=== PATIENT | male | born 1950 | race Caucasian/White ===

== ENCOUNTER 2017-05-14 16:33 | Inpatient (IN) | payer MEDICARE, BC ==
--- NOTE | ~2017-05-14 | EC ---
PATIENT:CALLIE POZO DATE OF SERVICE: 05/15/17 SEX: M MEDICAL RECORD: [id number] DATE OF : [birth year] LOCATION:D.M2 D.211 AGE OF PATIENT: 67 ADMISSION DATE: 05/15/17 REFERRING PHYSICIAN: INTERPRETING PHYSICIAN: THELMA LUA MD ECHOCARDIOGRAM REPORT ECHO CHARGES 4 ECHO COMPLETE CLINICAL DIAGNOSIS: S/P ACUTE VA/STEMI ECHOCARDIOGRAPHIC MEASUREMENTS (adult normal given) AC root (d.<3.7cm) 3.5 cm LV Septum d (<1.2 cm> 1.6 cm Valve Excursion 2.2 cm LV Septum (systole) 2.2 cm Left Atria (s.<4.0cm> 4.0 cm LVPW d(<1.2cm) 1.6 cm RV (d.<2.3cm) 2.5 cm LVPW (sytole) 2.3 cm LV diastole(<5.6CM) 5.8 cm MV E-F(>70mm/sec) cm LV systole 3.9 cm LVOT Diameter 1.9 cm MV exc.(>10mm) cm Est.ejection fraction (50-75%) % Pericardial Effusion N DOPPLER: LVIT cm/sec A 73.0 cm/sec E 107 cm/sec LA cm/sec RVSP 43.0 mmHg LVOT 122 cm/sec AOP1/2T m/s Asc. Ao 144 cm/sec RVOT 79.0 cm/sec RA cm/sec PA 85.0 cm/sec AV Gradient Peak 8.3 mmHg AV Mean 4.6 mmHg AV Area 2.6 cm MV Gradient Peak 5.1 mmHg MV Mean 2.0 mmHg MV Area cm COMMENTS: District Claims Manager: Jono HAINESOE Pocket Builder: 4 Dr. Lua TAPE# PACS DATE OF SERVICE: 05/15/2017 PROCEDURE: Transthoracic echocardiogram. FINDINGS: 1. The left ventricle has normal to mildly hyperdynamic LV systolic function, EF is 65%. There are no obvious regional wall motion abnormalities. Inflow characteristics are normal. 2. The left atrium is mildly dilated. 3. The aortic valve is normal structurally and functionally. ECHOCARDIOGRAM REPORT [id number] CALLIE POZO 4. The mitral valve is normal. 5. The tricuspid valve is normal. RVSP of 43 mmHg. 6. The pericardium is normal. 7. The pulmonic valve is normal. 8. The right atrium has mild dilatation. 9. The right ventricle has normal size, normal function. CONCLUSION: The patient has evidence of hypertensive heart disease with moderate left ventricular hypertrophy, but there is no obvious wall motion abnormalities and has preserved LV systolic function. TRANSINT:[id number] Voice Confirmation ID: [id number] DOCUMENT ID: [id number] 05/18/2017 Edited to correct date of service, dm. THELMA LUA MD at 0807 CC: [id number] DICTATION DATE: 05/16/17 0729 BATH TESTER: 05/16/17 0949 DIS IN 05/16/17 [place] [id number] [place] [address]
--- NOTE | ~2017-05-14 | HEMODYNAMI ---
PATIENT:CALLIE POZO MEDICAL RECORD: [id number] : 48 LOCATION:[facility] ADMISSION DATE: 05/14/17 Generatedon:05/14/201718:27 Patient name: CALLIE POZO Patient #: [id number] SSN: : 1950 Date of study: 05/14/2017 Page: Of Hemodynamic Procedure Report Patient Data Patient Demographics Procedure consent was obtained First Name: CALLIE Gender: Male Last Name: SÁNCHEZ : 1950 Patient #: [id number] Age: 67 year(s) Race: Unknown Additional ID: [id number] Contact details Address: [address] [place] [address] State: [place] City: [place] Zip code: [address] Past Medical History Allergies: No known allergies Admission Admission Data Admission Date: 05/14/2017 Admission Time: 16:33 Procedure Procedure Types Cath Procedure Diagnostic Procedure LHC LH w/Coronaries PCI Procedure Coronary Stent Coronary Stent Initial x2 Miscellaneous Procedures Moderate Sedation up to 30 minutes Procedure Description Procedure Date Procedure Date: 05/14/2017 Procedure Start Time: 17:48 Procedure End Time: 18:26 Procedure Staff Name Function Mikey Stephens MD Performing Physician Santi Vanessa RT Monitor Denise Mixon RT Scrub Carla Alvarez RN Nurse Procedure Data Cath Procedure Fluoroscopy Diagnostic fluoroscopy Total fluoroscopy Time: 7.7 time: 7.7 min min Diagnostic fluoroscopy Total fluoroscopy dose: dose: 1620 mGy 1620 mGy Contrast Material Contrast Material Type Amount (ml) Isovue 300 137 Entry Location Entry Primary Successful Side Size Upsize Upsize Entry Closure Euceda ccessful Closure Location (Fr) 1 (Fr) 2 (Fr) Remarks Device Remarks Radial Right 6 Fr Mechanical artery Short Compression Estimated blood loss: 10 ml Diagnostic catheters Device Type Used For End Catheter Placement DIAGNOSTIC Upson 110cm 5 Procedure Fr catheter ([id number]) Procedure Complications No complications Procedure Medications Medication Administration Route Dosage Oxygen NC 2 l/min 0.9% NaCl I.V. 100 ml/hr Benadryl I.V. 50 mg Lidocaine 2% added to field 20 Heparin Flush Bag added to field 2 bags (1000units/500ml NS) Versed I.V. 2 mg Fentanyl I.V. 25 mcg Heparin Bolus I.V. 7000 units Nitroglycerin IC/IA I.C. 200 mcg Heparin Bolus I.V. 2000 units Hemodynamics Rest Heart Rate: 76 (bpm) Pressure Samples Time Site Value (mmHg) Purpose Heart Use Rate(bpm) 17:54 LV 160/-8,14 EDP 81 17:54 AO 130/72(99) Pullback 87 17:54 LV 128/14,17 Pullback 87 Gradients Valve Time Site 1 Site 2 Mean SEP/DFP Peak To Heart Use (mmHg) (sec/min) Peak Rate (mmHg) (bpm) Aortic 17:54 LV AO 0 87 128/14,17 130/72(99) Calculations Valve P-P Mean Valve Index Valve Source Name Gradient Area Flow (cm2) Aortic 0 0 Snapshots Pre Cath Intra NCS Post Cath Vital Signs Time Heart Resp SPO2 etCO2 NIBP (mmHg) Rhythm Pain Sedation Rate (ipm) (%) (mmHg) Status Level (bpm) 17:39:30 74 17 98 0 155/84(116) NSR w/ ST 0 (11) 10(A) Elevation , No pain 17:44:19 89 20 96 0 148/61(78) NSR w/ ST 0 (11) 10(A) Elevation , No pain 17:49:04 87 15 98 38 149/82(112) NSR w/ ST 0 (11) 10(A) Elevation , No pain 17:53:42 88 15 96 32.8 128/69(87) NSR w/ ST 0 (11) 10(A) Elevation , No pain 17:58:23 85 13 98 33.5 138/73(96) NSR w/ ST 0 (11) 10(A) Elevation , No pain 18:03:06 88 15 99 32.8 143/82(106) NSR w/ ST 0 (11) 10(A) Elevation , No pain 18:07:48 89 17 100 32.8 137/75(101) NSR w/ ST 0 (11) 10(A) Elevation , No pain 18:12:31 80 15 100 33.5 134/74(92) NSR w/ ST 0 (11) 10(A) Elevation , No pain 18:17:46 67 16 99 34.3 122/81(103) NSR w/ ST 0 (11) 10(A) Elevation , No pain 18:22:31 70 18 99 29 117/59(95) NSR w/ ST 0 (11) 10(A) Elevation , No pain Medications Time Medication Route Dose Verified Delivered Reason Notes Effectiveness by by 17:41:52 Oxygen NC 2 Mikey Buffie used for l/min Becca Alvarez RN procedure 17:42:01 0.9% NaCl I.V. 100 Mikey Buffie Per physician ml/hr Becca Alvarez RN, MD 17:42:08 Benadryl I.V. 50 mg Mikey Buffie used for Becca rae MD 17:42:16 Lidocaine 2% added 20ml Mikey Mikey for local to vial Becca Stephens MD anesthetic field LAINEZ 17:42:22 Heparin Flush added 2 Mikey Mikey used for Bag to bags Becca Stephens MD procedure (1000units/500ml field LAINEZ NS) 17:48:57 Versed I.V. 2 mg Mikey Buffie for sedation Becca Alvarez RN, MD 17:49:09 Fentanyl I.V. 25 Mikey Buffie for sedation mcg Becca Alvarez RN, MD 17:57:19 Heparin Bolus I.V. 7000 Mikey Buffie for verifi ed units Becca Alvarez RN anticoagulation with dr MD stephens 18:07:46 Nitroglycerin I.C. 200 Mikey Mikey for IC/IA mcg Becca Stephens MD vasodilation 18:11:43 Heparin Bolus I.V. 2000 Mikey Buffie for verifi ed units Becca Alvarez RN anticoagulation with dr MD stephens Procedure Log Time Note 17:25:22 Time tracking: Regular hours 17:25:26 Plan of Care:Hemodynamics will remain stable., Cardiac rhythm will remain stable., Comfort level will be maintained., Respiratory function will remain adequate., Patient/ family verbilizes understanding of procedure., Procedure tolerated without complication., Recovers from procedure without complications.. 17:25:46 Carla Alvarez RN sent for patient. Start room use. 17:38:34 Vital chart was started 17:38:40 Patient received from ED to CCL 1 Alert and oriented. Tansferred to table in Supine position. 17:38:41 Warm blankets applied, and soledad hugger turned on for patient comfort. 17:38:42 Correct patient and procedure confirmed by team. 17:38:43 ECG and BP/O2 sat monitors applied to patient. 17:38:44 Signed procedure consent form obtained from patient. 17:38:46 Baseline sample Acquired. 17:38:50 Rhythm: sinus rhythm , w/ ST elevation 17:38:52 Full Disclosure recording started 17:41:52 Oxygen 2 l/min NC was administered by Carla Alvarez RN; used for procedure; 17:42:01 0.9% NaCl 100 ml/hr I.V. was administered by Carla Alvarez RN; Per physician; 17:42:08 Benadryl 50 mg I.V. was administered by Carla Alvarez RN; used for procedure; 17:42:16 Lidocaine 2% 20ml vial added to field was administered by Mikey Stephens MD; for local anesthetic; 17:42:22 Heparin Flush Bag (1000units/500ml NS) 2 bags added to field was administered by Mikey Stephens MD; used for procedure; 17:47:15 H&P Date Dictated: 05/14/2017 ER History on chart.. 17:47:16 Pre-procedure instructions explained to patient. 17:47:16 Pre-op teaching completed and patient verbalized understanding. 17:47:17 Family in waiting room. 17:47:18 Patient NPO since Midnight. 17:47:25 Patient allergic to No known allergies 17:47:28 Is the patient allergic to Iodine/contrast media? No. 17:47:29 Is patient on blood thinner?Yes 17:47:32 ACC The patient was administered the following blood thiners within the last 24 hours: ACCPlavix 17:47:32 Patient diabetic? Yes. 17:47:33 If diabetic: On Metformin? Yes 17:47:34 If on Metformin: Last Dose? 05/14/2017 17:47:37 Previous problem with sedation/anesthesia? No ? 17:47:37 Snore? Yes 17:47:38 Sleep apnea? Yes 17:47:39 Deviated septum? No 17:47:39 Opens mouth fully? Yes 17:47:40 Sticks out tongue? Yes 17:47:42 Airway obstruction? No ? 17:47:44 Dentures? No ? 17:47:50 Modified Yusuf's test Ulnar < 7 seconds 17:47:56 Patient pain scale 0/10 ?. 17:48:03 IV patent on arrival in right antecubital, left antecubital with 0.9% NaCl at [facility]. 17:48:07 Right Radial & Right Groin area was prepped with chlora-prep and draped in sterile fashion 17:48:13 Alarms reviewed by R. N. 17:48:13 Sharps counted by scrub and verified by R.N. 17:48:16 Use device set Radial Dx or PCI 17:48:17 ACIST Syringe (95282) opened to sterile field. 17:48:18 Medline Cath Pack ([id number]) opened to sterile field. 17:48:21 ACIST Manifold (72385) opened to sterile field. 17:48:21 ACIST Hand Control (87140) opened to sterile field. 17:48:22 Bag Decanter (2002S) opened to sterile field. 17:48:23 NEEDLE Cook 21G 4cm Radial (A22734) opened to sterile field. 17:48:24 MBrace Wrist Support ([id number]) opened to sterile field. 17:48:24 Tegaderm 4 x 4 (1626W) opened to sterile field. 17:48:25 SHEATH 6FR Slender ([id number]) opened to sterile field. 17:48:25 DIAGNOSTIC WIRE .035 260cm J wire (138811) opened to sterile field. 17:48:30 Physician arrived 17:48:30 --------ALL STOP TIME OUT------ 17:48:31 Final Timeout: patient, procedure, and site verified with staff and physician. All members of the team are in agreement. 17:48:32 Right Radial & Right Groin site verified by team. 17:48:35 Physical assessment completed. ASA score P 2 - A patient with mild systemic disease as per Mikey Stephens MD. 17:48:37 Sedation plan: IV Moderate Sedation Medication:Versed, Fentanyl 17:48:43 Procedure started. 17:48:48 Local anesthetic to right radial artery with Lidocaine 2% by Mikey Stephens MD.INITIAL ACCESS ONLY 17:48:55 A 6 Fr Short sheath was inserted into the Right Radial artery 17:48:57 Versed 2 mg I.V. was administered by Carla Alvarez RN; for sedation; 17:49:09 Fentanyl 25 mcg I.V. was administered by Carla Alvarez RN; for sedation; 17:49:41 Zero performed for pressure channel P1 17:49:52 Lab results completed and on chart. 17:50:05 A DIAGNOSTIC Upson 110cm 5 Fr catheter (062877) was advanced over the wire and used for Procedure. 17:50:35 IV Extension Set opened to sterile field. 17:51:36 LCA angiography performed. 17:53:09 RCA angiography performed. 17:54:29 LV gram done using RODRIGUEZ 17:54:31 Injector settings: Ml/sec: 12, Volume: 8, 17:54:59 Catheter removed. 17:55:13 INFLATOR Merit BasixCompak (CU0642) opened to sterile field. 17:55:13 GUIDE 6FR XBLAD 3.5 catheter (61341441) opened to sterile field. 17:55:14 BMW 190cm Maypearl 2 J wire (7553207V) opened to sterile field. 17:55:54 COPILOT Valve Control (5540727) opened to sterile field. 17:56:03 6 Fr xblad 3.5 guide catheter was inserted over the wire 17:57:19 Heparin Bolus 7000 units I.V. was administered by Carla Alvarez RN; for anticoagulation; verified with dr stephens 17:58:44 bmw wire advanced. 17:59:24 Wire advanced across lesion. 18:02:28 Inflation Number: 1 A CORAL RX 3.0 x 22 stent ([id number]) was prepped and advanced across the Dist LAD. The stent was deployed at 12 FRANCK for 0:10 (min:sec). 18:02:50 Stent catheter was removed intact over wire. 18:05:16 Inflation Number: 1 A CORAL RX 3.0 x 26 stent ([id number]) was prepped and advanced across the Prox LAD. The stent was deployed at 19 FRANCK for 0:10 (min:sec). 18:05:31 Stent catheter was removed intact over wire. 18:07:46 Nitroglycerin IC/IA 200 mcg I.C. was administered by Mikey Stephens MD; for vasodilation; 18:08:27 Wire removed. 18:10:17 Guide catheter removed. 18:11:11 GUIDE 6FR AR 1.0 SH catheter ([id number]) opened to sterile field. 18:11:43 Heparin Bolus 2000 units I.V. was administered by Carla Alvarez RN; for anticoagulation; verified with dr stephens 18:12:39 6 Fr AR 1 SH guide catheter was inserted over the wire 18:13:34 BMW wire advanced. 18:13:35 Wire advanced across lesion. 18:16:03 Inflation Number: 1 A CORAL RX 4.0 x 22 stent ([id number]) was prepped and advanced across the Mid RCA. The stent was deployed at 12 FRANCK for 0:10 (min:sec). 18:16:44 Stent catheter was removed intact over wire. 18:17:47 Wire removed. 18:17:47 Guide catheter removed. 18:17:56 TR BAND Large ([id number]) opened to sterile field. 18:18:05 Sheath removed intact; hemostasis achieved with Mechanical Compression to the Right Radial artery. 18:18:07 Procedure ended.(Physican Out) 18:22:19 Fluoroscopy time 07.70 minutes. 18:22:23 Fluoroscopy dose: 1620 mGy 18:22:23 Flurop Dose total: 1620 18:22:29 Contrast amount:Isovue 300 137ml. 18:22:31 Sharps counted by scrub and verified by R.N. 18:22:38 TR band inflated with 11cc of air. 18:22:58 Insertion/operative site no bleeding no hematoma. 18:23:06 Post right radial artery:stable, soft, clean and dry 18:23:13 Post Procedure Pulses reassessed and unchanged 18:23:16 Post-procedure physical assessment completed. ASA score P 2 - A patient with mild systemic disease as per Mikey Stephens MD. 18:23:19 Post procedure rhythm: unchanged. 18:23:23 Estimated blood loss: 10 ml 18:23:25 Post procedure instruction explained to patient.Patient verbalizes understanding. 18:23:26 Patient needs reinforcement of post procedure teaching. 18:23:48 Procedure type changed to Cath procedure, Diagnostic procedure, LHC, LHC w/Coronaries, PCI procedure, Coronary Stent, Coronary Stent Initial x2, Miscellaneous Procedures, Moderate Sedation up to 30 minutes 18:24:04 EF : 65 % 18:25:46 Procedure and supply charges have been captured, reviewed, submitted and are correct. 18:25:53 Procedure Complication : No complications 18:25:57 Vital chart was stopped 18:25:58 See physician's report for complete and final results. 18:26:05 Report given to ED. 18:26:08 Patient transfered to ED with Stretcher. 18:26:10 Procedure ended. 18:26:10 Full Disclosure recording stopped 18:26:17 End room use (Document Last) Intervention Summary Intervention Notes Time ActionType Lesion and Equipment Used Action# Pressure Duration Attributes 18:02:28 Place stent Dist LAD CORAL RX 3.0 x 1 12 00:10 22 stent ([id number]) 18:05:16 Place stent Prox LAD CORAL RX 3.0 x 1 19 00:10 26 stent ([id number]) 18:16:03 Place stent Mid RCA CORAL RX 4.0 x 1 12 00:10 22 stent ([id number]) Device Usage Item Name Manufacture Quantity Catalog [facility] Lot# / Number Charge Number Stock Stock Serial# Code ACIST Syringe Acist 1 09271 862817 945362 876651 20 (64182) Medical Systems Inc Medline Cath Cardinal 1 [id number] 680216 14436 475408 5 [facility] ([id number]) ACIST Manifold Acist 1 45680 119296 424694 804272 5 (33677) Medical Systems Inc ACIST Hand Acist 1 93344 343812 388708 329213 5 Control Medical (92959) Systems Inc Bag Decanter Microtek 1 2001S 801621 55157 532012 5 (2001S) Medical Inc. NEEDLE Lorena Gaxiola Medical 1 O99797 580636 290796 476277 5 21G 4cm Radial (A00628) MBrace Wrist Advanced 1 140-0250-00 533063 40460 971262 5 Support Vascular (179066518) Dynamics Tegaderm 4 x 4 3M 1 1626W 502221 726346 899225 5 (1626W) SHEATH 6FR Terumo 1 [id number] 986555 464334 401318 40 Slender ([id number]) DIAGNOSTIC St Ariel 1 257646 883761 042841 950214 30 WIRE .035 260cm J wire (974233) DIAGNOSTIC Terumo 1 40-0783 470299 158208 502430 5 Upson 110cm 5 Fr catheter (296131) IV Extension Hospira 1 09763-07 796579 81501 041945 5 Set INFLATOR Merit Merit 1 GL6378 616368 465091 899708 15 [facility] (GF1730) GUIDE 6FR Cardinal 1 [id number] 101697 768478 997558 10 XBLAD 3.5 Health catheter (66774795) BMW 190cm Chand 1 [id number] 626623 06833 736279 5 Maypearl 2 J Vascular wire (8539710G) COPILOT Valve Chand 1 1195691 254612 193452 894077 5 Control Vascular (0992594) CORAL RX 3.0 x Medtronic 1 [id number] 949642 6737542 840861 5 [id number] 22 stent ([id number]) CORAL RX 3.0 x Medtronic 1 [id number] 888030 1726859 035101 5 [id number] 26 stent ([id number]) GUIDE 6FR AR Medtronic 1 [id number] 195963 03035 351817 1 1.0 SH catheter ([id number]) CORAL RX 4.0 x Medtronic 1 [id number] 241304 8780100 800936 5 [id number] 22 stent ([id number]) TR BAND Large Terumo 1 [id number] 834057 467103 826175 40 ([id number]) Signature Audit [place] Stage Time Signature Unsigned Intra-Procedure 05/14/2017 Santi Vanessa 6:27:54 PM RT(R) Signatures Monitor : Santi Vanessa RT Signature : Date : Time : [facility] [address] [place] [address]
[2017-05-14 17:29] LABS: BASOPHILS 0.1 % (0-2); EOSINOPHILS 0.2 % (0-7); HEMATOCRIT 36.8 % (42.0-54.0); HEMOGLOBIN 12.1 g/dL (13.5-17.5); IMMATURE GRANULOCYTES 0.2 % (0-5); MCH 30.7 pg (26.0-34.0); MCHC 32.9 g/dL (31.0-37.0); MCV 93.4 fL (80.0-100.0); MEAN PLATELET VOLUME 10.3 fL (7.4-10.4); MONOCYTES 5.6 % (2-11); NEUTROPHILS 80.9 % (40-80); PLATELET COUNT 235 10x3/uL (130-400); RBC 3.94 10x6/uL (4.20-6.10); RDW 13.4 % (11.5-14.5); WBC 13.3 10x3/uL (4.8-10.8)
[2017-05-14 17:41] LABS: APTT 24.7 SECONDS (22.8-39.4); INR 1.08 (0.85-1.17); PROTIME 13.6 SECONDS (11.6-15.0)
[2017-05-14 17:46] LABS: ALKALINE PHOSPHATASE 135 U/L (46-116); ALT (SGPT) 30 U/L (10-68); BILIRUBIN - TOTAL 0.27 mg/dL (0.2-1.3); CALC OSMOLALITY 285 mosm/kg (275-300); CALCIUM 9.2 mg/dL (8.5-10.1); CARBON DIOXIDE 27.8 mmol/L (21.0-32.0); CHLORIDE - SERUM 105 mmol/L (98-107); CREATININE - SERUM 1.1 mg/dL (0.6-1.3); GLUCOSE 167 mg/dL (74-106); POTASSIUM - SERUM 4.6 mmol/L (3.5-5.1); PROTEIN - SERUM 7.6 g/dL (6.4-8.2); SODIUM 140 mmol/L (136-145); UREA NITROGEN 22 mg/dL (7-18); eGFR NON AFRICAN AMERICAN 71 mL/min (90-120)
[2017-05-14 18:01] LABS: CKMB 7.3 U/L (0.0-3.6); CREATINE KINASE 226 UL (21-232)
[2017-05-14 18:05] LABS: TROPONIN-I 2.605 ng/mL (0.000-0.060)
[2017-05-15 06:59] LABS: BASOPHILS 0.2 % (0-2); HEMATOCRIT 33.7 % (42.0-54.0); HEMOGLOBIN 10.8 g/dL (13.5-17.5); IMMATURE GRANULOCYTES 0.3 % (0-5); LYMPHOCYTES 32.4 % (15-50); MCH 30.5 pg (26.0-34.0); MCV 95.2 fL (80.0-100.0); MEAN PLATELET VOLUME 10.5 fL (7.4-10.4); NEUTROPHILS 55.1 % (40-80); PLATELET COUNT 148 10x3/uL (130-400); RBC 3.54 10x6/uL (4.20-6.10); RDW 13.8 % (11.5-14.5); WBC 6.5 10x3/uL (4.8-10.8)
[2017-05-15 07:39] LABS: ALBUMIN 3.5 g/dL (3.4-5.0); ALKALINE PHOSPHATASE 126 U/L (46-116); ALT (SGPT) 29 U/L (10-68); BILIRUBIN - TOTAL 0.51 mg/dL (0.2-1.3); CALC OSMOLALITY 281 mosm/kg (275-300); CALCIUM 8.7 mg/dL (8.5-10.1); CARBON DIOXIDE 24.1 mmol/L (21.0-32.0); CHLORIDE - SERUM 106 mmol/L (98-107); CREATININE - SERUM 0.9 mg/dL (0.6-1.3); GLUCOSE 141 mg/dL (74-106); POTASSIUM - SERUM 4.2 mmol/L (3.5-5.1); PROTEIN - SERUM 6.5 g/dL (6.4-8.2); SODIUM 139 mmol/L (136-145); UREA NITROGEN 19 mg/dL (7-18); eGFR NON AFRICAN AMERICAN 89 mL/min (90-120)
[2017-05-15 07:55] LABS: TROPONIN-I 8.285 ng/mL (0.000-0.060)
[2017-05-15 10:19] VITALS: BP 111/69; BMI 33.0
[2017-05-15 12:19] VITALS: BP 104/65
[2017-05-15 12:20] VITALS: BP 104/65
[2017-05-15 16:29] VITALS: BP 135/88
[2017-05-15 20:00] VITALS: BP 133/71
[2017-05-16] VITALS: BP 118/65
[2017-05-16 04:00] VITALS: BP 142/82
[2017-05-16 08:41] VITALS: BP 138/78
[2017-05-16] MEDS ORDERED: PLAVIX75 MG PO (10:29)
[2017-05-16] MEDS ORDERED: ZESTRIL40 MG PO (10:29)
[2017-05-16] MEDS ORDERED: GLUCOTROL 5 MG T5 MG PO (10:30)
[2017-05-16] MEDS ORDERED: ACTOS45 MG PO (10:30)
[2017-05-16 11:47] VITALS: BP 131/43
[2017-05-16] MEDS ORDERED: ASPIRIN325 MG PO (12:46)
[2017-05-16] MEDS ORDERED: HYDROCODONE-APA1 TAB PO (12:47)
[2017-05-16] MEDS ORDERED: GLUCOPHAGE1000 MG PO (12:48)
[2017-05-16] MEDS ORDERED: NORVASC5 MG PO (12:49)
[2017-05-16] MEDS ORDERED: LYRICA100 MG PO (12:49)
[2017-05-16] MEDS ORDERED: LIPITOR80 MG PO (12:50)
[2017-05-16] MEDS ORDERED: LOPRESSOR25 MG PO (12:51)
[2017-05-16] MEDS ORDERED: ZANAFLEX6 MG PO (12:51)
== END 2017-05-16 13:59 | disposition home or self-care (01) | DRG 247 ==
LOC: D.ER 16:33 → OBSVTIME 05-15 07:53 → D.M2 05-15 07:53
PROVIDERS: Family Medicine; Internal Medicine Cardiovascular Disease
PROC: B2111ZZ Fluoroscopy of Multiple Coronary Arteries using Low Osmolar Contrast (ICD-10-PCS; 2017-05-14)
PROC: B2151ZZ Fluoroscopy of Left Heart using Low Osmolar Contrast (ICD-10-PCS; 2017-05-14)
PROC: 027136Z Dilation of Coronary Artery, Two Arteries with Three Drug-eluting Intraluminal Devices, Percutaneous Approach (ICD-10-PCS; principal; 2017-05-14 17:25)
PROC: 4A023N7 Measurement of Cardiac Sampling and Pressure, Left Heart, Percutaneous Approach (ICD-10-PCS; 2017-05-14 17:25)
DX: I21.09 ST elevation (STEMI) myocardial infarction involving other coronary artery of anterior wall (principal); I25.10 Atherosclerotic heart disease of native coronary artery without angina pectoris; I10 Essential (primary) hypertension; K21.9 Gastro-esophageal reflux disease without esophagitis

== ENCOUNTER → 2017-07-06 12:27 | Outpatient (CLI) | payer MEDICARE, BC ==
--- NOTE | ~2017-07-06 | EC ---
PATIENT:CALLIE POZO DATE OF SERVICE: 07/06/17 SEX: M MEDICAL RECORD: [id number] DATE OF : [birth year] [facility] AGE OF PATIENT: 67 ADMISSION DATE: 07/06/17 REFERRING PHYSICIAN: INTERPRETING PHYSICIAN: THELMA LUA MD ECHOCARDIOGRAM REPORT ECHO CHARGES 4 ECHO COMPLETE Date: 07/06 CLINICAL DIAGNOSIS: HTN/CAD/CP ECHOCARDIOGRAPHIC MEASUREMENTS (adult normal given) AC root (d.<3.7cm) 3.4 cm LV Septum d (<1.2 cm> 1. cm Valve Excursion 2.3 cm LV Septum (systole) 1.8 cm Left Atria (s.<4.0cm> 3.7 cm LVPW d(<1.2cm) 1.3 cm RV (d.<2.3cm) 3.0 cm LVPW (sytole) 2.1 cm LV diastole(<5.6CM) 4.5 cm MV E-F(>70mm/sec) cm LV systole 2.9 cm LVOT Diameter 2.0 cm MV exc.(>10mm) cm Est.ejection fraction (50-75%) % DOPPLER: LVIT cm/sec A 58.0 cm/sec E 92.0 cm/sec LA cm/sec RVSP 33.4 mmHg LVOT 108 cm/sec AOP1/2T m/s Asc. Ao 145 cm/sec RVOT 79.0 cm/sec RA cm/sec PA 108 cm/sec AV Gradient Peak 8.5 mmHg AV Mean 4.5 mmHg AV Area 2.2 cm MV Gradient Peak 3.7 mmHg MV Mean 1.2 mmHg MV Area cm COMMENTS: Sweatband Maker: Jono HAINESOE Mission Assessment Specialist: Handy Lua TAPE# PACS Pericardial Effusion N DATE OF SERVICE: PROCEDURE: Transthoracic echocardiogram. FINDINGS: 1. Left ventricle is normal size, normal function with mild left ventricular hypertrophy and inflow characteristics that are normal. 2. The left atrium is normal size, normal function. 3. The aortic valve is not well visualized, but appears to be grossly normal. 4. Mitral valve has mild mitral regurgitation, but structurally appears to be ECHOCARDIOGRAM REPORT [id number] CALLIE POZO normal. 5. The tricuspid valve has mild tricuspid regurgitation with an RVSP of 30 to 35 mmHg. 6. The right ventricle shows mild dilatation. 7. The right atrium has normal structure and normal function. 8. Pulmonic valve has trace pulmonic insufficiency. CONCLUSIONS: The patient has evidence of mild left ventricular hypertrophy, otherwise normal echo for stated age. TRANSINT:[id number] Voice Confirmation ID: [id number] DOCUMENT ID: [id number] THELMA LUA MD at 0741 CC: [id number] DICTATION DATE: 07/11/17 1057 RADIO TESTER: 07/11/17 1229 DEP CLI 07/06/17 [facility] [address] [place] [address]
[~2017-07-06 12:27] MED LIST: ACTOS45 MG PO; ASPIRIN325 MG PO; GLUCOPHAGE1000 MG PO; GLUCOTROL 5 MG T5 MG PO; HYDROCODONE-APA1 TAB PO; LIPITOR80 MG PO; LOPRESSOR25 MG PO; LYRICA100 MG PO; NORVASC5 MG PO; PLAVIX75 MG PO; ZANAFLEX6 MG PO; ZESTRIL40 MG PO
== END | disposition home or self-care (01) ==
LOC: D.US 12:27
DX: I10 Essential (primary) hypertension (principal); I25.10 Atherosclerotic heart disease of native coronary artery without angina pectoris; R09.89 Other specified symptoms and signs involving the circulatory and respiratory systems; R07.9 Chest pain, unspecified

== ENCOUNTER → 2018-04-24 11:01 | Outpatient (CLI) | payer MEDICARE, BC ==
--- NOTE | 2018-04-27 17:10 | ST ---
PATIENT:CALLIE POZO MEDICAL RECORD: [id number] SEX: M LOCATION:[facility] ORDER #: ADMISSION DATE: 04/24/18 AGE OF PATIENT: 68 REFERRING PHYSICIAN: INTERPRETING PHYSICIAN: JENNY TRIANA MD DATE OF SERVICE: 04/24/2018 PROCEDURE: Nuclear stress test. INDICATION: Angina, coronary artery disease, hypertension, hyperlipidemia, and diabetes. He was exercised on standard Lexiscan protocol with 33 mCi injected at peak stress sestamibi and 10 mCi used previously for rest images. FINDINGS: Gated SPECT reveals preserved ejection fraction at 68% with good wall motioning, thickening, and brightening throughout all segments. SPECT imaging Cardiolite was used as myocardial fusion agent. There is reversibility inferiorly. This includes basal, mid, apical, and inferior segments. The degree of reversibility is mild. The amount of myocardium involved is moderate. OVERALL IMPRESSION: 1. This is an abnormal nuclear stress test with reversible changes inferiorly. 2. Gated SPECT reveals a preserved ejection fraction of 68%. 3. In this patient with ongoing symptomatology, the current scan does suggest presence of hemodynamically significant coronary artery disease. We will proceed with coronary angiography as a followup study. TRANSINT:[id number] Voice Confirmation ID: [id number] DOCUMENT ID: [id number] JENNY TRIANA MD at 1710 CC: [id number] DICTATION DATE: 04/25/18 1157 DESIGN ENGINEERING SPECIALIST: 04/26/18 0143 DEP CLI 04/24/18 [place] [id number]
== END | disposition home or self-care (01) ==
LOC: D.HCCARDIO 11:01
DX: I25.10 Atherosclerotic heart disease of native coronary artery without angina pectoris (principal)

== ENCOUNTER 2018-05-03 10:55 | Outpatient (CLI) | payer MEDICARE, BC ==
[~2018-05-03] VITALS: Ht 177.8 cm; Wt 109.1 kg
--- NOTE | ~2018-05-03 | HEMODYNAMI ---
PATIENT:CALLIE POZO MEDICAL RECORD: [id number] : 48 LOCATION:DDANO ADMISSION DATE: 05/03/18 Generatedon:05/03/201815:11 Patient name: CALLIE POZO Patient #: [id number] SSN: : 1950 Date of study: 05/03/2018 Page: Of Hemodynamic Procedure Report Patient Data Patient Demographics Procedure consent was obtained First Name: CALLIE Gender: Male Last Name: SÁNCHEZ : 1950 [facility] Initial: DREW Age: 68 year(s) Patient #: [id number] Race: Unknown Additional ID: [id number] Contact details Address: [address] [place] [address] State: [place] City: [place] Zip code: [address] Past Medical History Allergies: No known allergies Admission Admission Data Admission Date: 05/03/2018 Admission Time: 10:55 Lab Results Lab Result Date: 05/03/2018 Lab Result Time: 11:20 Biochemistry Name Units Result Min Max BUN mg/dl 27 --(----)-* 7 18 Creatinine mg/dl 1.1 --(--*-)-- 0.6 1.3 CBC Name Units Result Min Max Hematocrit % 37 *-(----)-- 42 54 Hemoglobin g/dl 12.2 *-(----)-- 13.5 17.5 Procedure Procedure Types Cath Procedure Diagnostic Procedure C [facility] w/Coronaries Procedure Description Procedure Date Procedure Date: 05/03/2018 Procedure Start Time: 14:58 Procedure End Time: 15:09 Procedure Staff Name Function Von Ceballos MD Performing Physician Santi Vanessa RT Monitor Marky Braswell RN Nurse Eli Golden RT Scrub Procedure Data Cath Procedure Fluoroscopy Diagnostic fluoroscopy Total fluoroscopy Time: 1 time: 1 min min Diagnostic fluoroscopy Total fluoroscopy dose: 805 dose: 805 mGy mGy Contrast Material Contrast Material Type Amount (ml) Isovue 300 52 Entry Location Entry Primary Successful Side Size Upsize Upsize Entry Closure Euceda ccessful Closure Location (Fr) 1 (Fr) 2 (Fr) Remarks Device Remarks Radial Right 6 Fr Mechanical artery Short Compression Estimated blood loss: 5 ml Diagnostic catheters Device Type Used For End Catheter Placement DIAGNOSTIC Raphine 110cm 5 Procedure Fr catheter ([id number]) Procedure Complications No complications Procedure Medications Medication Administration Route Dosage 0.9% NaCl I.V. 100 ml/hr Oxygen etCO2 Nasal cannula 2 l/min Heparin Flush Bag added to field 2 bags (1000units/500ml NS) Lidocaine 2% added to field 20 Radial Cocktail added to field 1 syringe (Verapomil 2mg/Nitro 400mcg/Heparin 1500units) Versed I.V. 2 mg Fentanyl I.V. 100 mcg Hemodynamics Rest HGB: 12.2 (g/dl) Heart Rate: 63 (bpm) Pressure Samples Time Site Value (mmHg) Purpose Heart Use Rate(bpm) 15:00 LV 113/25,28 Snapshot 138 Gradients Valve Time Site Site Mean SEP/DFP Peak To Heart Use 1 2 (mmHg) (sec/min) Peak Rate (mmHg) (bpm) Aortic 15:00 LV AO 80 Snapshots Pre Cath Intra NCS Post Cath Vital Signs Time Heart Resp SPO2 etCO2 NIBP (mmHg) Rhythm Pain Sedation Rate (ipm) (%) (mmHg) Status Level (bpm) 14:57:21 61 17 99 33.1 167/86(136) NSR 0 (11) 10(A) , No pain 15:01:32 64 16 97 33.8 140/77(103) NSR 0 (11) 10(A) , No pain 15:05:48 68 11 96 34.6 136/76(121) NSR 0 (11) 10(A) , No pain Medications Time Medication Route Dose Verified Delivered Reason Notes E ffectiveness by by 14:50:16 0.9% NaCl I.V. 100 Marky Marky Per ml/hr Michaelle Braswell physician RN RN 14:50:25 Oxygen etCO2 2 l/min Marky Marky for low 02 Nasal Lorigan Lorigan sats cannula RN RN 14:50:34 Heparin Flush added 2 bags Marky Marky used for Bag to Lorigan Areliigan procedure (1000units/500ml field RN RN NS) 14:50:44 Lidocaine 2% added 20ml Marky Marky for local to vial Lorigan Lorigan anesthetic field RN RN 14:50:55 Radial Cocktail added 1 Marky Marky used for (Verapomil to syringe Michaelle Braswell procedure 2mg/Nitro field RN RN 400mcg/Heparin 1500units) 14:56:38 Versed I.V. 2 mg Marky Marky for Lorigan Lorigan sedation RN RN 14:56:55 Fentanyl I.V. 100 mcg Marky Marky for Lorigan Lorigan sedation RN outsole cutter machine Log Time Note 14:26:16 Diagnostic Cath status Elective 14:26:18 Eli Golden RT(R) sent for patient. Start room use. 14:26:20 Time tracking: Regular hours (M-F 7:00 - 5:00) 14:39:29 Patient received from Pre/Post Procedure Room to CCL 2 Alert and oriented. Tansferred to table in Supine position. 14:39:31 Warm blankets applied, and soledad hugger turned on for patient comfort. 14:39:31 Correct patient and procedure confirmed by team. 14:39:32 Signed procedure consent form obtained from patient. 14:39:33 ECG and BP/O2 sat monitors applied to patient. 14:39:36 Pre-procedure instructions explained to patient. 14:39:36 Pre-op teaching completed and patient verbalized understanding. 14:39:37 Family in waiting room. 14:39:39 Patient NPO since Midnight. 14:50:16 0.9% NaCl 100 ml/hr I.V. was administered by Marky Braswell RN; Per physician; 14:50:25 Oxygen 2 l/min etCO2 Nasal cannula was administered by Marky Braswell RN; for low 02 sats; 14:50:34 Heparin Flush Bag (1000units/500ml NS) 2 bags added to field was administered by Marky Braswell RN; used for procedure; 14:50:44 Lidocaine 2% 20ml vial added to field was administered by Marky Braswell RN; for local anesthetic; 14:50:55 Radial Cocktail (Verapomil 2mg/Nitro 400mcg/Heparin 1500units) 1 syringe added to field was administered by Marky Braswell RN; used for procedure; 14:54:54 Patient allergic to No known allergies 14:54:55 Is the patient allergic to Iodine/contrast media? No. 14:54:56 Is patient on blood thinner?Yes 14:54:58 ACC The patient was administered the following blood thiners within the last 24 hours: ACCPlavix 14:55:00 Patient diabetic? Yes. 14:55:01 If diabetic: On Metformin? Yes 14:55:05 Previous problem with sedation/anesthesia? No ? 14:55:06 Snore? Yes 14:55:07 Sleep apnea? Yes 14:55:07 Deviated septum? No 14:55:09 Opens mouth fully? Yes 14:55:11 Sticks out tongue? Yes 14:55:13 Airway obstruction? No ? 14:55:14 Dentures? No ? 14:55:17 Modified Yusuf's test Ulnar < 7 seconds 14:55:18 Patient pain scale 0/10 ?. 14:55:21 IV patent on arrival in left forearm with 0.9% NaCl at [facility]. 14:55:50 Lab Result : BUN 27 mg/dl 14:55:50 Lab Result : Hemoglobin 12.2 g/dl 14:55:50 Lab Result : Creatinine 1.1 mg/dl 14:55:50 Lab Result : Hematocrit 37 % 14:55:52 Lab results completed and on chart. 14:55:55 Right Radial & Right Groin area was prepped with chlora-prep and draped in sterile fashion 14:55:56 Alarms reviewed by R. N. 14:55:56 Sharps counted by scrub and verified by R.N. 14:55:59 Use device set Radial Dx or PCI 14:55:59 ACIST Syringe (94747) opened to sterile field. 14:56:00 Medline Cath Pack ([id number]) opened to sterile field. 14:56:00 Bag Decanter (2002S) opened to sterile field. 14:56:01 MBrace Wrist Support ([id number]) opened to sterile field. 14:56:02 SHEATH 6FR Slender (52-6212) opened to sterile field. 14:56:03 DIAGNOSTIC WIRE .035 260cm J wire (750000) opened to sterile field. 14:56:03 ACIST Hand Control (89922) opened to sterile field. 14:56:04 ACIST Manifold (86401) opened to sterile field. 14:56:04 Tegaderm 4 x 4 (1626W) opened to sterile field. 14:56:10 Baseline sample Acquired. 14:56:10 Vital chart was started 14:56:13 Rhythm: sinus rhythm 14:56:14 Full Disclosure recording started 14:56:20 Physician arrived 14:56:21 --------ALL STOP TIME OUT------ 14:56:21 Final Timeout: patient, procedure, and site verified with staff and physician. All members of the team are in agreement. 14:56:22 Right Radial & Right Groin site verified by team. 14:56:25 Fire Safety Assessment: A--An alcohol-based skin anteseptic being used preoperatively., C--Open oxygen or nitrous oxide is being used., D--An ESU, laser, or fiber-optic light is being used. 14:56:28 Physical assessment completed. ASA score P 2 - A patient with mild systemic disease as per Von Ceballos MD. 14:56:31 Sedation plan: IV Moderate Sedation Medication:Versed, Fentanyl 14:56:38 Versed 2 mg I.V. was administered by Marky Braswell RN; for sedation; 14:56:55 Fentanyl 100 mcg I.V. was administered by aMrky Braswell RN; for sedation; 14:57:36 Zero performed for pressure channel P1 14:57:59 H&P Date Dictated: 05/03/2018 New H&P dictated by physician.. 14:58:48 Procedure started. 14:58:52 Local anesthetic to right radial artery with Lidocaine 2% by Von Ceballos MD.INITIAL ACCESS ONLY 14:59:02 A 6 Fr Short sheath was inserted into the Right Radial artery 15:00:07 A DIAGNOSTIC Raphine 110cm 5 Fr catheter (260463) was advanced over the wire and used for Procedure. 15:00:25 LV gram done using RODRIGUEZ 15:00:28 Injector settings: Ml/sec: 5, Volume: 15, 15:00:38 EF : 55 % 15:00:39 LV hemodynamics recorded. 15:01:26 LCA angiography performed. 15:02:21 RCA angiography performed. 15:02:39 Catheter removed. 15:03:52 ZEPHYR REGULAR TR BAND NO COST(429054) opened to sterile field. 15:04:34 Sheath removed intact; hemostasis achieved with Mechanical Compression to the Right Radial artery. 15:04:35 Procedure ended.(Physican Out) 15:05:11 Fluoroscopy time 01.00 minutes. 15:05:14 Fluoroscopy dose: 805 mGy 15:05:14 Flurop Dose total: 805 15:05:32 Contrast amount:Isovue 300 52ml. 15:05:34 Sharps counted by scrub and verified by R.N. 15:05:40 TR band inflated with 8cc of air. 15:05:41 Insertion/operative site no bleeding no hematoma. 15:05:48 Post right radial artery:stable, soft, clean and dry 15:05:49 Post Procedure Pulses reassessed and unchanged 15:05:53 Post-procedure physical assessment completed. ASA score P 2 - A patient with mild systemic disease as per Von Ceballos MD. 15:05:55 Post procedure rhythm: unchanged. 15:06:04 Estimated blood loss: 5 ml 15:06:06 Post procedure instruction explained to patient.Patient verbalizes understanding. 15:06:15 Patient needs reinforcement of post procedure teaching. 15:07:39 Procedure type changed to Cath procedure, Diagnostic procedure, LHC, LHC w/Coronaries 15:08:34 Procedure and supply charges have been captured, reviewed, submitted and are correct. 15:08:36 Procedure Complication : No complications 15:08:56 Vital chart was stopped 15:08:57 See physician's report for complete and final results. 15:08:59 Report given to Pre/Post Procedure Room. 15:09:01 Patient transfered to Pre/Post Procedure Room with Stretcher. 15:09:03 Procedure ended. 15:09:03 Full Disclosure recording stopped 15:09:08 End room use (Document Last) Device Usage Item Name Manufacture Quantity Catalog Hospital Part Current Minima l Lot# / Number Charge Number Stock Stock Serial# Code ACIST Acist 1 92170 060476 838460 176163 20 Syringe CareOne (03341) Systems Inc Medline Cath Medline 1 [id number] 910742 48738 198358 5 Pack ([id number]) Bag Decanter Microtek 1 167027 59720 432321 5 () Medical Inc. MBrace Wrist Advanced 1 140-0250-00 350077 39525 662878 5 Support Vascular ([id number]) Dynamics SHEATH 6FR Terumo 1 [id number] 243205 329217 410338 5 Slender (80-1060) DIAGNOSTIC St Ariel 1 865615 151084 787961 949387 30 WIRE .035 260cm J wire (000326) ACIST Hand Acist 1 22994 367983 568538 425245 5 Control Medical (31908) Systems Inc ACIST Acist 1 11408 810763 992438 528391 5 Manifold Medical (92844) Systems Inc Tegaderm 4 x 3M 1 1626W 663961 284049 649375 5 4 (1626W) DIAGNOSTIC Terumo 1 12-2546 697252 684717 501453 5 Raphine 110cm 5 Fr catheter (809962) ZEPHYR Cardinal 1 022391 202392 200871 5 REGULAR TR Health BAND NO COST(651197) Signature Audit [place] Stage Time Signature Unsigned Intra-Procedure 05/03/2018 Santi Vanessa 3:10:56 PM RT(R) Signatures Monitor : Santi Vanessa RT Signature : Date : Time : [place] [address] [place] [address]
[2018-05-03 11:21] VITALS: BP 165/70; Ht 177.8 cm; Wt 109.1 kg
[2018-05-03 11:31] LABS: BASOPHILS 0.2 % (0-2); HEMOGLOBIN 12.2 g/dL (13.5-17.5); IMMATURE GRANULOCYTES 0.4 % (0-5); LYMPHOCYTES 35.6 % (15-50); MCV 90.9 fL (80.0-100.0); MEAN PLATELET VOLUME 10.6 fL (7.4-10.4); MONOCYTES 10.7 % (2-11); NEUTROPHILS 50.1 % (40-80); RBC 4.07 10x6/uL (4.20-6.10); RDW 13.5 % (11.5-14.5); WBC 5.7 10x3/uL (4.8-10.8)
[2018-05-03 11:38] LABS: PLATELET COUNT 211 10x3/uL (130-400)
[2018-05-03 11:50] LABS: ANION GAP 13.8 mmol/L (8-16); CALCIUM 8.9 mg/dL (8.5-10.1); CARBON DIOXIDE 24.5 mmol/L (21.0-32.0); CREATININE - SERUM 1.1 mg/dL (0.6-1.3); POTASSIUM - SERUM 4.3 mmol/L (3.5-5.1)
--- NOTE | 2018-05-03 15:35 | NUR ---
RIGHT WRIST TR BAND IN PLACE. NO BLEEDING OR HEMATOMA NOTED. PT SET UP WITH SANDWICH TRAY AND DRINK.
--- NOTE | 2018-05-03 16:01 | NUR ---
PT RESTING COMFORTABLY. VSS. RIGHT RADIAL Z BAND IN PLACE. NO BLEEDING/HEMATOMA NOTED.
--- NOTE | 2018-05-03 16:15 | NUR ---
1cc OF AIR REMOVED FROM TR BAND. NO BLEEDING/HEMATOMA NOTED. VSS.
--- NOTE | 2018-05-03 16:30 | NUR ---
3cc OF AIR REMOVED FROM Z BAND. NO BLEEDING/HEMATOMA NOTED.
--- NOTE | 2018-05-03 17:06 | NUR ---
LEFT FA PIV D/C'D WITH CATH TIP INTACT. PT TOLERATED WELL. REMOVED 3cc OR AIR FROM Z BAND. NO BLEEDING/HEMATOMA NOTED. PT INSTRUCTED TO GET UP AND GET DRESSED. FAMILY AT BEDSIDE.
--- NOTE | 2018-05-03 17:15 | NUR ---
Z BAND REMOVED. RIGHT WRIST BRACE IN PLACE. NO BLEEDING/HEMATOMA NOTED.
--- NOTE | 2018-05-03 17:20 | NUR ---
DISCUSSED DISCHARGE INSTRUCTIONS WITH PT AND PT'S . THEY VOICED UNDERSTANDING. RIGHT WRIST DRESSING C/D/I. NO S/S OF HEMATOMA NOTED. PT TAKEN TO RESTROOM. VOIDED WITHOUT DIFFICULTY. TAKEN OUT TO VEHICLE BY WHEELCHAIR. NO S/S OF DISTRESS NOTED. ALL BELONGINGS AND PAPERWORK IN HAND.
--- NOTE | 2018-05-04 09:01 | OP ---
PATIENT NAME: CALLIE POZO MEDICAL RECORD: [id number] :48 LOCATION:D.CAT ADMISSION DATE: SURGEON: EARLENE HADDAD MD DATE OF OPERATION: 05/03/2018 PROCEDURE: Left heart catheterization, selective coronary angiography, right radial approach. CATHETERS: [place] catheter, radial sheath. The procedure was well tolerated. The patient was returned to the marsh. Sheath was removed. Arterial band was placed. FINDINGS: Left ventriculography in 30-degree RODRIGUEZ view: Normal wall motion and normal systolic function. CORONARY ANATOMY: LEFT MAIN: Left main is free of disease. LAD: Area of previous stenting is widely patent. No progression of cocopah disease. No evidence of restenosis. CIRCUMFLEX: Somewhat codominant system. Circumflex is free of disease. RIGHT CORONARY ARTERY: Previous stent is widely patent. IMPRESSION: No evidence of restenosis. No progression of cocopah disease. Normal LV systolic function. TRANSINT:[id number] Voice Confirmation ID: [id number] DOCUMENT ID: [id number] EARLENE HADDAD MD at 0901 CC: [id number] DICTATION DATE: 05/03/18 1509 TOILET AND LAUNDRY SOAP SUPERVISOR: 05/03/18 1648 DEP CLI 05/03/18 [facility] [address] [place] [address]
--- NOTE | 2018-05-04 09:01 | HP ---
PATIENT: CALLIE POZO MEDICAL RECORD: [id number] ACCOUNT: [id number] LOCATION:CARLOS : [birth year] ADMISSION DATE: 05/03/18 PCP: RUBINA HAN HISTORY AND PHYSICAL EXAMINATION HISTORY OF PRESENT ILLNESS: A 68-year-old gentleman with known history of coronary artery disease as well as hypertension, diabetes, presented initially to the office with chest pain, underwent Cardiolite stress testing, showed reversible ischemia, being brought in for diagnostic angiography to delineate anatomy. PAST MEDICAL HISTORY: Includes: 1. History of hypertension. 2. Diabetes mellitus. 3. Coronary artery disease as described above. MEDICATIONS: Typically include Trazodone 25 mg p.o. at bedtime; metformin 1 gram b.i.d.; Plavix 75 every day; atorvastatin 80 every day; aspirin 81 every day. PHYSICAL EXAMINATION: GENERAL: Pleasant gentleman, appears younger than stated age. HEENT: Normocephalic, atraumatic. NECK: No bruits noted. HEART: Regular. LUNGS: Clear. ABDOMEN: Soft, nontender. EXTREMITIES: Pulse 2+. No edema. DIAGNOSTIC DATA: ECG without acute change. Nuclear stress test is abnormal as described above. PLAN: For angiography, intervention based on above. TRANSINT:[id number] Voice Confirmation ID: [id number] DOCUMENT ID: [id number] EARLENE HADDAD MD at 0901 CC: [id number] DICTATION DATE: 05/03/18 1525 PRICING STRATEGIST: 05/03/18 1551 DEP CLI 05/03/18 [place] [id number] [place] [id number]
== END 2018-05-03 17:20 | disposition home or self-care (01) ==
LOC: D.CATH 10:55
PROVIDERS: Internal Medicine Interventional Cardiology
DX: R94.39 Abnormal result of other cardiovascular function study (principal)

== ENCOUNTER 2019-08-01 02:13 | Inpatient (IN) | payer MEDICARE, BC ==
[2019-08-01] VITALS (28 sets, daily range): BP systolic 100–143; BP diastolic 62–83; BMI 31.0
[~2019-08-01] VITALS: Ht 177.8 cm; Wt 98.0 kg
[2019-08-01 03:25] LABS: CKMB 1.5 U/L (0.0-3.6); CREATINE KINASE 46 UL (21-232)
[2019-08-01 03:27] LABS: TROPONIN-I 0.139 ng/mL (0.000-0.060)
--- NOTE | 2019-08-01 04:41 | NUR ---
SHAWNEE POZO CONTACT INFORMATION [phone]
--- NOTE | 2019-08-01 06:00 | NUR ---
ARRIVED TO UNIT VIA STRETCHER AND ER STAFF, ICU MONITORING EQUIPMENT PLACED. AOX4, FOLLOWS COMMANDS. PT SOB, LABORED BREATHING WITH MINIMAL EXERTION. HFNC IN PLACE @ 11L, SPO2 96. S1S2 HEARD, PERIPHERAL PULSES PRESENT. BOWEL SOUNDS ACTIVE, DENIES NAUSEA. DENIES ANY PAIN AT THIS TIME. URINAL AT BEDSIDE. HOB @ 35 DEGREES. DENIES ANY PAIN AT THIS TIME. CALL LIGHT AND BEDSIDE TABLE WITHIN PT REACH. CPOC.
[2019-08-01 07:10] LABS: BASOPHILS 0.1 % (0-2); EOSINOPHILS 0.1 % (0-7); HEMATOCRIT 37.1 % (42.0-54.0); HEMOGLOBIN 11.8 g/dL (13.5-17.5); IMMATURE GRANULOCYTES 0.3 % (0-5); LYMPHOCYTES 18.9 % (15-50); MCH 30.5 pg (26.0-34.0); MCHC 31.8 g/dL (31.0-37.0); MCV 95.9 fL (80.0-100.0); MEAN PLATELET VOLUME 10.5 fL (7.4-10.4); MONOCYTES 9.4 % (2-11); NEUTROPHILS 71.2 % (40-80); PLATELET COUNT 176 10x3/uL (130-400); RBC 3.87 10x6/uL (4.20-6.10); RDW 13.3 % (11.5-14.5); WBC 7.5 10x3/uL (4.8-10.8)
[2019-08-01 07:39] LABS: ALBUMIN 3.2 g/dL (3.4-5.0); ALKALINE PHOSPHATASE 193 U/L (30-120); ALT (SGPT) 30 U/L (10-68); BILIRUBIN - TOTAL 0.38 mg/dL (0.2-1.3); CALC OSMOLALITY 285 mosm/kg (275-300); CALCIUM 9.2 mg/dL (8.5-10.1); CARBON DIOXIDE 22.1 mmol/L (21.0-32.0); CHLORIDE - SERUM 102 mmol/L (98-107); GLUCOSE 384 mg/dL (74-106); POTASSIUM - SERUM 5.1 mmol/L (3.5-5.1); SODIUM 133 mmol/L (136-145); TROPONIN-I 0.322 ng/mL (0.000-0.060); UREA NITROGEN 24 mg/dL (7-18); eGFR NON AFRICAN AMERICAN 78 mL/min (90-120)
--- NOTE | 2019-08-01 09:00 | NUR ---
BREAKFAST SERVED ATE FAIR. DENIES PAIN BECOMES SHORT OF BREATH WITH MINIMAL EXERTION. USING INCENTIVE SPIROMETRY MAKES HIM SHORT OF BREATH.
[2019-08-01 09:27] LABS: MAGNESIUM - SERUM 1.9 mg/dL (1.8-2.4); THYROID STIMULATING HORMONE 0.29 uIU/mL (0.36-3.74)
--- NOTE | 2019-08-01 09:44 | NUR ---
DR. GILES NOTIFIED OF CONSULT.
--- NOTE | 2019-08-01 16:30 | NUR ---
COMPLETE BED BATH GIVEN WITH LINEN CHANGE NO SKIN BREAKDOWN NOTED. PATIENT ABLE TO ASSIST IN TURNING SELF WITH MINIMAL SHORTNESS OF BREATH. NEEDS TOTAL ASSISTANCES TO MOVE UP IN BED DUE TO SHORTNESS OF BREATH. TOLERATED FAIR. HEAD OF BED ELEVATED. ENCOURAGE TO TURN SELF FROM SIDE TO SIDE.
--- NOTE | 2019-08-01 19:00 | NUR ---
SHIFT ASSESSMENT COMPLETED. PT CARE ASSUMED. MONITORS ON AND WORKING, VITALS STABLE, PT AWAKE AND ALERT, URINAL AT BEDSIDE AND EMPTIED AT THIS TIME, CALL LIGHT WITHIN REACH, SEE FLOW SHEET FOR FURTHER DETAILS. WILL CONTINUE TO OBSERVE.
--- NOTE | 2019-08-01 21:00 | NUR ---
PT LYING IN BED RESTING, MONITORS ON AND WORKING, VITALS STABLE, PT AWAKE AND ALERT, C/O BACK PAIN, PRN MORPHINE GIVEN PER PTS REQUEST. CALL LIGHT WITHIN REACH, WILL CONTINUE TO OBSERVE.
--- NOTE | 2019-08-01 23:00 | NUR ---
PT LYING IN BED RESTING, MONITORS ON AND WORKING, VITALS STABLE. CALL LIGHT WITHIN REACH, SEE FLOW SHEET FOR FURTHER DETAILS. WILL CONTINUE TO OBSERVE.
[2019-08-02] VITALS (16 sets, daily range): BP systolic 103–148; BP diastolic 52–81
--- NOTE | 2019-08-02 01:00 | NUR ---
PT LYING IN BED RESTING, MONITORS ON AND WORKING, NO CHANGES, CALL LIGHT WITHIN REACH, WILL CONTINUE TO OBSERVE.
--- NOTE | 2019-08-02 03:00 | NUR ---
NO CHANGES, PRN PAIN MEDS GIVEN PER PTS REQUEST, MONITORS ON AND WORKING, VITALS STABLE. CALL LIGHT WITHIN REACH, SEE FLOW SHEET FOR FURTHER DETAILS, WILL CONTINUE TO OBSERVE.
--- NOTE | 2019-08-02 05:00 | NUR ---
PT SITTING UP IN BED, AWAKE AND ALERT, NO SIGNS/SYMPTOMS OF PAIN OR DISCOMFORT NOTED AT THIS TIME, CALL LIGHT WITHIN REACH, WILL CONTINUE TO OBSERVE.
[2019-08-02 06:01] LABS: BASOPHILS 0.1 % (0-2); HEMATOCRIT 36.4 % (42.0-54.0); HEMOGLOBIN 11.5 g/dL (13.5-17.5); IMMATURE GRANULOCYTES 0.4 % (0-5); LYMPHOCYTES 26.4 % (15-50); MCH 30.3 pg (26.0-34.0); MCHC 31.6 g/dL (31.0-37.0); MCV 95.8 fL (80.0-100.0); MEAN PLATELET VOLUME 10.5 fL (7.4-10.4); MONOCYTES 9.1 % (2-11); PLATELET COUNT 167 10x3/uL (130-400); RDW 13.2 % (11.5-14.5); WBC 8.1 10x3/uL (4.8-10.8)
[2019-08-02 06:19] LABS: ALBUMIN 3.1 g/dL (3.4-5.0); ALKALINE PHOSPHATASE 183 U/L (30-120); BILIRUBIN - TOTAL 0.55 mg/dL (0.2-1.3); CALCIUM 9.1 mg/dL (8.5-10.1); CARBON DIOXIDE 25.1 mmol/L (21.0-32.0); CHLORIDE - SERUM 104 mmol/L (98-107); CREATININE - SERUM 0.9 mg/dL (0.6-1.3); POTASSIUM - SERUM 4.4 mmol/L (3.5-5.1); PROTEIN - SERUM 6.9 g/dL (6.4-8.2); SODIUM 139 mmol/L (136-145); UREA NITROGEN 24 mg/dL (7-18); eGFR NON AFRICAN AMERICAN 89 mL/min (90-120)
[2019-08-02 06:25] LABS: ALT (SGPT) 21 U/L (10-68); CALC OSMOLALITY 290 mosm/kg (275-300); GLUCOSE 252 mg/dL (74-106)
[2019-08-02 08:10] LABS: HAPTOGLOBIN 281 mg/dL (32-363)
[2019-08-02 13:09] LABS: ACLA - IGG AB <9 GPL U/mL (0-14); ACLA - IGM AB <9 MPL U/mL (0-12)
--- NOTE | 2019-08-02 19:00 | NUR ---
ASSESSMENT COMPLETED.SEE FLOWSHEETS FOR ALL FINDINGS. PT A/O X4, DENIES ANY SOB OR DISCOMFORT AT THIS TIME. SR ON CM WITH HR AT 100BPM. LUNG SOUNDS DIMINISHED TO LLB, UNLABORED ON 4L VIA HIGH FLOW NC. PPP. REPOSITIONED FOR COMFORT. HOB UP. SIDE RAILS UP. CALL LIGHT AND BEDSIDE TABLE IN REACH. CONT TO MONITOR.
--- NOTE | 2019-08-02 21:35 | NUR ---
PT C/O PAIN TO BACK, LEGS 7/10 ON SCALE. MS 4MGIVP GIVEN PER ORDER. PT OSBALDO WELL. CPOC.
--- NOTE | 2019-08-02 21:50 | NUR ---
REPORT GIVEN FOR RM 2113.
[2019-08-03 04:00] VITALS: BP 114/60
[2019-08-03 06:48] LABS: BASOPHILS 0.2 % (0-2); EOSINOPHILS 1.6 % (0-7); HEMATOCRIT 33.8 % (42.0-54.0); HEMOGLOBIN 10.5 g/dL (13.5-17.5); IMMATURE GRANULOCYTES 0.4 % (0-5); MCH 30.3 pg (26.0-34.0); MCHC 31.1 g/dL (31.0-37.0); MCV 97.7 fL (80.0-100.0); MEAN PLATELET VOLUME 10.7 fL (7.4-10.4); MONOCYTES 10.7 % (2-11); NEUTROPHILS 59.1 % (40-80); PLATELET COUNT 162 10x3/uL (130-400); RBC 3.46 10x6/uL (4.20-6.10); RDW 13.3 % (11.5-14.5)
[2019-08-03 07:09] LABS: ALBUMIN 2.8 g/dL (3.4-5.0); ALKALINE PHOSPHATASE 160 U/L (30-120); ALT (SGPT) 21 U/L (10-68); BILIRUBIN - TOTAL 0.65 mg/dL (0.2-1.3); CALC OSMOLALITY 284 mosm/kg (275-300); CALCIUM 8.3 mg/dL (8.5-10.1); CARBON DIOXIDE 22.9 mmol/L (21.0-32.0); CHLORIDE - SERUM 105 mmol/L (98-107); CREATININE - SERUM 0.8 mg/dL (0.6-1.3); GLUCOSE 198 mg/dL (74-106); POTASSIUM - SERUM 3.9 mmol/L (3.5-5.1); PROTEIN - SERUM 5.7 g/dL (6.4-8.2); SODIUM 138 mmol/L (136-145); UREA NITROGEN 21 mg/dL (7-18); eGFR NON AFRICAN AMERICAN > 90 mL/min (90-120)
[2019-08-03 07:20] LABS: WBC 5.6 10x3/uL (4.8-10.8)
[2019-08-03 08:24] VITALS: BP 103/60
[2019-08-03 12:34] VITALS: BP 118/59
[2019-08-03 12:46] VITALS: Ht 177.8 cm; Wt 98.0 kg
--- NOTE | 2019-08-03 16:05 | MORECARE ---
CASE MANAGEMENT DISCHARGE SUMMARY PATIENT: CALLIE PURVIS DREW UNIT: [id number] ADM DATE: 08/01/19 AGE: 69 : [birth year] SEX: M ROOM/BED: D.2113 AUTHOR: ESTEFANI SHAFFER PHYSICIAN: REFERRING PHYSICIAN: JANET JARRETT DO DATE OF SERVICE: 08/03/19 Discharge Plan Patient Name[facility] CALLIE PURVIS [facility] : 1950 Planned Disposition: Home Anticipated Discharge Date: Discharge Date: Expected LOS: Initial Reviewer: [email or web address] Initial Review Date: 08/02/2019 Generated: 08/03/19 5:05 pm DCPIA - Discharge Planning Initial Assessment Updated by [email or web address]: Traci Deutsch on 08/03/19 4:01 pm * Is the patient Alert and Oriented? Yes * How many steps to enter\exit or inside your home? * PCP Dr. Georges Wolff * [facility] * Preadmission Environment Home with Family * ADLs Independent * Other Equipment hospital bed, walker, shower chair * List name and contact numbers for known caregivers / representatives who currently or will assist patient after discharge: Salima Purvis - [facility] - [phone] * Verbal permission to speak to the caregivers and representatives has been obtained from the patient. Yes * Community resources currently utilized None * Additional services required to return to the preadmission environment? No * Can the patient safely return to the preadmission environment? Yes * Has this patient been hospitalized within the prior 30 days at any hospital? Yes Patient Name: CALLIE PURVIS Page [phone] at 1605 All edits/amendments must be made on the electronic document DICTATION DATE: 08/03/19 160 MEDICAL DOCTOR: FREDDY 08/03/19 160 RPT#: [id number] DC DATE: STATUS: ADM IN [facility] [address] [place] [address] END OF REPORT
[2019-08-03 16:22] VITALS: BP 99/57
--- NOTE | 2019-08-03 19:56 | NUR ---
RECEIVED BEDSIDE SHIFT REPOT. ALERT AND ORIENTED X4. UP AD KAREN TO BR. IV TO LT AC WITH 1/2 NS AT 50CC/HR. O2@ 4 LITERS PER HF NC IN PLACE. IJ TO RIGHT SL. DENIES ANY NEEDS AT THIS TIME.
[2019-08-03 20:30] VITALS: BP 103/57
[2019-08-04 00:30] VITALS: BP 107/47
[2019-08-04 03:07] LABS: PROTEIN C - ANTIGEN 93 % (60-150); PROTEIN C - FUNCTIONAL 113 % (73-180)
[2019-08-04 04:30] VITALS: BP 107/58
[2019-08-04 04:52] LABS: BASOPHILS 0.2 % (0-2); EOSINOPHILS 1.7 % (0-7); HEMOGLOBIN 10.1 g/dL (13.5-17.5); IMMATURE GRANULOCYTES 0.4 % (0-5); LYMPHOCYTES 30.5 % (15-50); MCH 30.2 pg (26.0-34.0); MCHC 31.6 g/dL (31.0-37.0); MCV 95.8 fL (80.0-100.0); MEAN PLATELET VOLUME 10.7 fL (7.4-10.4); MONOCYTES 9.5 % (2-11); NEUTROPHILS 57.7 % (40-80); PLATELET COUNT 181 10x3/uL (130-400); RBC 3.34 10x6/uL (4.20-6.10); RDW 13.2 % (11.5-14.5); WBC 5.2 10x3/uL (4.8-10.8)
[2019-08-04 05:15] LABS: ALBUMIN 2.7 g/dL (3.4-5.0); ANION GAP 11.1 mmol/L (8-16); BILIRUBIN - TOTAL 0.59 mg/dL (0.2-1.3); CALCIUM 8.5 mg/dL (8.5-10.1); CARBON DIOXIDE 23.6 mmol/L (21.0-32.0); CREATININE - SERUM 1.1 mg/dL (0.6-1.3); POTASSIUM - SERUM 3.7 mmol/L (3.5-5.1); PROTEIN - SERUM 6.2 g/dL (6.4-8.2)
--- NOTE | 2019-08-04 08:27 | NUR ---
ROUNDING DONE WITH PATIENT SITTING ON SIDE OF BED EATING BREAKFAST. LEFT AC PIV SEEN WITH 1/2 NS INFUSING AT 50 CC/HR. RIGHT IJ SEEN WITH SALINE LOCK. ON 4L PER HIGH FLOW. GLASSES ON. DENIES NEEDS AT THIS TIME. CALL LIGHT IN USE.
[2019-08-04 09:47] VITALS: BP 137/64
--- NOTE | 2019-08-04 10:29 | NUR ---
0950-COMPLAINTS OF BACK PAION 08/28, ISAIAH GIVEN. I TOLD HIM THAT IF IT DOESN/T HELP THEN I CAN GIVE THE MORPHINE IN AN HOUR. ALSO, I PRINTED OFF THE INFO FOR THE ELIQUIS AND GAVE HIM.
[2019-08-04 11:08] LABS: PROTEIN S - FREE 111 % (57-157); PROTEIN S - TOTAL 102 % (60-150)
[2019-08-04 12:08] LABS: PROTEIN S - FREE 105 % (57-157); PROTEIN S - FUNCTIONAL 97 % (63-140); PROTEIN S - TOTAL 98 % (60-150)
[2019-08-04 13:10] VITALS: BP 112/55
--- NOTE | 2019-08-04 15:02 | NUR ---
PATIENT HAS BEEN SITTING IN THE CHAIR FOR MOST OF THE AFTERNOON. BACK TO BED. DENIES NEEDS. AFTERNOON MEDICATION GIVEN. ON ROOM AIR WITH SATS OF 93-84%. DENIES NEEDS.
--- NOTE | 2019-08-04 15:51 | NUR ---
C/O OF PAIN 08/28 TO BACK. NORCO 10 MG TAB GIVEN. DENIES ANY OTHER NEEDS AT THIS TIME.
--- NOTE | 2019-08-04 17:58 | NUR ---
1712-INFORMATION SHEET GIVEN TO PATIENT R/T METFORMIN
[2019-08-04 17:59] VITALS: BP 119/69
--- NOTE | 2019-08-04 20:04 | NUR ---
RECEIVED SHIFT REPORT. UP IN BED WITH EYES OPEN AND TALKING ON TELEPHONE. ALERT AND ORIENTED X4. IV TO LT AC WITH 1/2 NS AT 50CC/HR. RT IJ SL. BLOOD SUGAR CONT TO BE MONITORED AC AND HS. DENIES ANY NEEDS AT THIS TIME.
[2019-08-04 20:30] VITALS: BP 122/64
[2019-08-05 00:30] VITALS: BP 98/55
[2019-08-05 04:25] VITALS: BP 116/65
[2019-08-05 05:00] LABS: BASOPHILS 0.2 % (0-2); EOSINOPHILS 1.9 % (0-7); HEMATOCRIT 31.7 % (42.0-54.0); IMMATURE GRANULOCYTES 0.2 % (0-5); MCH 30.1 pg (26.0-34.0); MCHC 31.5 g/dL (31.0-37.0); MCV 95.5 fL (80.0-100.0); MEAN PLATELET VOLUME 10.4 fL (7.4-10.4); MONOCYTES 7.1 % (2-11); NEUTROPHILS 66.6 % (40-80); PLATELET COUNT 185 10x3/uL (130-400); RBC 3.32 10x6/uL (4.20-6.10); RDW 13.2 % (11.5-14.5); WBC 5.4 10x3/uL (4.8-10.8)
[2019-08-05 05:30] LABS: ALBUMIN 2.7 g/dL (3.4-5.0); ALKALINE PHOSPHATASE 144 U/L (30-120); BILIRUBIN - TOTAL 0.45 mg/dL (0.2-1.3); CALC OSMOLALITY 280 mosm/kg (275-300); CALCIUM 8.3 mg/dL (8.5-10.1); CARBON DIOXIDE 23.5 mmol/L (21.0-32.0); CHLORIDE - SERUM 105 mmol/L (98-107); GLUCOSE 203 mg/dL (74-106); POTASSIUM - SERUM 3.6 mmol/L (3.5-5.1); PROTEIN - SERUM 6.1 g/dL (6.4-8.2); SODIUM 137 mmol/L (136-145); UREA NITROGEN 16 mg/dL (7-18); eGFR NON AFRICAN AMERICAN 78 mL/min (90-120)
[2019-08-05 05:41] LABS: ALT (SGPT) 26 U/L (10-68)
--- NOTE | 2019-08-05 07:20 | NUR ---
RECIEVE REPORT. RESTING IN BED WITH EYES CLOSED. NO SIGNS OF DISTRESS. CONTINUE PLAN OF CARE AND SAFETY PRECAUTIONS.
--- NOTE | 2019-08-05 08:56 | EC ---
PATIENT:CALLIE POZO DATE OF SERVICE: 08/01/19 SEX: M MEDICAL RECORD: [id number] DATE OF : [birth year] LOCATION:D.M2 D.211 AGE OF PATIENT: 69 ADMISSION DATE: 08/01/19 REFERRING PHYSICIAN: INTERPRETING PHYSICIAN: EARLENE HADDAD MD ECHOCARDIOGRAM REPORT ECHO CHARGES 4 ECHO COMPLETE Date: 08/01/19 CLINICAL DIAGNOSIS: BILATERAL PE'S HX CAD ECHOCARDIOGRAPHIC MEASUREMENTS (adult normal given) AC root (d.<3.7cm) 4.1 cm LV Septum d (<1.2 cm> 1.4 cm Valve Excursion 2.3 cm LV Septum (systole) 1.8 cm Left Atria (s.<4.0cm> 3.0 cm LVPW d(<1.2cm) 1.6 cm RV (d.<2.3cm) 3.6 cm LVPW (sytole) 1.7 cm LV diastole(<5.6CM) 3.6 cm MV E-F(>70mm/sec) cm LV systole 2.6 cm LVOT Diameter 2.1 cm MV exc.(>10mm) 1.6 cm Est.ejection fraction (50-75%) % DOPPLER: LVIT cm/sec A 87.0 cm/sec E 51.0 cm/sec LA cm/sec RVSP 44 mmHg LVOT 110 cm/sec AOP1/2T m/s Asc. Ao 115 cm/sec RVOT 68 cm/sec RA cm/sec PA 101 cm/sec AV Gradient Peak 5.33 mmHg AV Mean 4.00 mmHg AV Area 2.6 cm MV Gradient Peak 4.23 mmHg MV Mean 1.76 mmHg MV Area cm COMMENTS: Skate Hop: 2 CRISTY VICTOR Drawer Fitter: 3 Dr. Holman TAPE# PACS Pericardial Effusion N DATE OF SERVICE: Adequate 2D, color flow imaging, spectral Doppler, and M-Mode. LVH is present. LV internal dimensions are normal. Wall motion is normal. EF is greater than or equal to 55%. Aortic valve is tricuspid. No evidence of stenosis by Doppler interrogation. Left atrium is normal at 3.0 cm. Mitral valve shows no prolapse. Trace MR. Right-sided chambers are grossly normal. Mild TR. ECHOCARDIOGRAM REPORT [id number] CALLIE POZO TRANSINT:[id number] Voice Confirmation ID: [id number] DOCUMENT ID: [id number] EARLENE HADDAD MD at 0856 CC: [id number] DICTATION DATE: 08/02/1946 ONLINE MERCHANDISING MANAGER: 08/02/19 1524 ADM IN [facility] [address] [place] [id number]
[2019-08-05 09:24] VITALS: BP 118/65
[2019-08-05 12:10] VITALS: BP 125/66
--- NOTE | 2019-08-05 12:43 | MORECARE ---
CASE MANAGEMENT DISCHARGE SUMMARY PATIENT: CALLIE PURVIS UNIT: [id number] ADM DATE: 08/01/19 AGE: 69 : 49 SEX: M ROOM/BED: D.2113 AUTHOR: ESTEFANI SHAFFER PHYSICIAN: REFERRING PHYSICIAN: JANET JARRETT DO DATE OF SERVICE: 08/05/19 Discharge Plan Patient Name: CALLIE PURVIS Facility: [facility]:[place] : 1950 Planned Disposition: Home Anticipated Discharge Date: Discharge Date: Expected LOS: Initial Reviewer: [email or web address] Initial Review Date: 08/02/2019 Generated: 08/05/19 1:42 pm Comments DCP- Discharge Planning Updated by [email or web address]: Gina Tuttle on 08/05/19 11:[address] I received an order to arrange oxygen. I have called RT for a walk test. He failed walk test with PT. I spoke with patient and HSAILA for [facility] signed. I called Enzo with [facility], clinical and order faxed. Enzo states she will have transport bring patient a portable tank and the commercial collections driver will give his card for patient to call when discharged to meet at his house for home concentrator. CM will continue to follow and assist with discharge planning/needs. DCP- Discharge Planning Updated by [email or web address]: Traci Deutsch on 08/03/19 3:[address] LATE ENTRY 08/02/19 Patient Name: CALLIE PURVIS Admission Status: ER Accout number: [id number] Admission Date: 08-01-2019 : 1950 Admission Diagnosis:OTHER PULMONARY EMBOLISM WITHOUT ACUTE COR PULMONALE Attending: JANET JARRETT Current LOS: 2 Anticipated DC Date: Planned Disposition: Home Primary Insurance: MEDICARE A & B Discharge Planning Comments: CM met with patient at bedside after explaining CM role and obtaining verbal consent. Patient lives at home with his where he is independent with his care and plans to return there upon discharge. Patient feels this would be a safe discharge. CM discussed availability / needs of home health and medical equipment. Patient denies any discharge needs at this time. Patient states he will have his family drive him home upon discharge. CM will continue to follow and assist as needed with discharge planning / needs. Dean Of Instruction: Traci Deutsch DCPIA - Discharge Planning Initial Assessment Updated by [email or web address]: Traci Deutsch on 08/03/19 4:01 pm * Is the patient Alert and Oriented? Yes * How many steps to enter\exit or inside your home? * PCP Dr. Georges Col[facility] [place] * [facility] [place] * Preadmission Environment Home with Family * ADLs Independent * Other Equipment hospital bed, walker, shower chair * List name and contact numbers for known caregivers / representatives who currently or will assist patient after discharge: Salima Purvis - spouse - [phone] * Verbal permission to speak to the caregivers and representatives has been obtained from the patient. Yes * Community resources currently utilized None * Additional services required to return to the preadmission environment? No * Can the patient safely return to the preadmission environment? Yes * Has this patient been hospitalized within the prior 30 days at any hospital? Yes Coverage Notice Reviewer: [id number] Tuttle Notice Issued Date-Time: 08/05/2019 12:30 Notice Type: IM Discharge Notice Notice Delivered To: Patient Relationship to Patient: Self T Rail Turner Name: Delivery Method: HAND - Hand Delivered Anupama Days: Prior Verbal Notification: Recipient Understood Notice: Yes Recipient Signature: Yes Med Rec Note Co-signed by Attending: Coverage Notice Comment: IMM explained, signed, given, copy placed in MR Reviewer: [id number] Tuttle Notice Issued Date-Time: 08/05/2019 12:30 Notice Type: Patient Choice Letter Notice Delivered To: Patient Relationship to Patient: Self T Rail Turner Name: Delivery Method: HAND - Hand Delivered Anupama Days: Prior Verbal Notification: Recipient Understood Notice: Yes Recipient Signature: Yes Med Rec Note Co-signed by Attending: Coverage Notice Comment: hsaila for [facility] or [facility] or [facility] Last DP export: 08/03/19 3:05 p Patient Name: CALLIE PURVIS Page [id number] at 1243 All edits/amendments must be made on the electronic document DICTATION DATE: 08/05/19 1242 MOBILE DESIGNER: FREDDY 08/05/19 1242 RPT#: [id number] DC DATE: STATUS: ADM IN [facility] [address] [facility] [place] [address] END OF REPORT
--- NOTE | 2019-08-05 13:32 | MORECARE ---
CASE MANAGEMENT DISCHARGE SUMMARY PATIENT: CALLIE PURVIS UNIT: [id number] ADM DATE: 08/01/19 AGE: 69 : 49 SEX: M ROOM/BED: D.2113 AUTHOR: ESTEFANI SHAFFER PHYSICIAN: REFERRING PHYSICIAN: JANET JARRETT DO DATE OF SERVICE: 08/05/19 Discharge Plan Patient Name: CALLIE PURVIS Facility: [facility]:[place] : 1950 Planned Disposition: Home Anticipated Discharge Date: Discharge Date: Expected LOS: Initial Reviewer: [email or web address] Initial Review Date: 08/02/2019 Generated: 08/05/19 2:32 pm Comments DCP- Discharge Planning Updated by [email or web address]: Gina Marry on 08/05/19 12:[address] [facility] has dropped off the portable oxygen and patient has the card to call [facility] when discharged for home. No other needs identified. CM will continue to follow and assist with discharge planning/needs. DCP- Discharge Planning Updated by [email or web address]: Gina Marry on 08/05/19 11:[address] I received an order to arrange oxygen. I have called RT for a walk test. He failed walk test with PT. I spoke with patient and SHAILA for [facility] signed. I called Enzo with [facility], clinical and order faxed. Enzo states she will have transport bring patient a portable tank and the patient transportation driver will give his card for patient to call when discharged to meet at his house for home concentrator. CM will continue to follow and assist with discharge planning/needs. DCP- Discharge Planning Updated by [email or web address]: Traci Deutsch on 08/03/19 3:[address] LATE ENTRY 08/02/19 Patient Name: CALLIE PURVIS Admission Status: ER Accout number: [id number] Admission Date: 08-01-2019 : 1950 Admission Diagnosis:OTHER PULMONARY EMBOLISM WITHOUT ACUTE COR PULMONALE Attending: JANET JARRETT Current LOS: 2 Anticipated DC Date: Planned Disposition: Home Primary Insurance: MEDICARE A & B Discharge Planning Comments: CM met with patient at bedside after explaining CM role and obtaining verbal consent. Patient lives at home with his where he is independent with his care and plans to return there upon discharge. Patient feels this would be a safe discharge. CM discussed availability / needs of home health and medical equipment. Patient denies any discharge needs at this time. Patient states he will have his family drive him home upon discharge. CM will continue to follow and assist as needed with discharge planning / needs. Anti Air Warfare Operations Officer: Traci Deutsch DCPIA - Discharge Planning Initial Assessment Updated by [email or web address]: Traci Deutsch on 08/03/19 4:01 pm * Is the patient Alert and Oriented? Yes * How many steps to enter\exit or inside your home? * PCP Dr. Georges [place] * [facility] [place] * Preadmission Environment Home with Family * ADLs Independent * Other Equipment hospital bed, walker, shower chair * List name and contact numbers for known caregivers / representatives who currently or will assist patient after discharge: Salima Purvis - [facility] - [phone] * Verbal permission to speak to the caregivers and representatives has been obtained from the patient. Yes * Community resources currently utilized None * Additional services required to return to the preadmission environment? No * Can the patient safely return to the preadmission environment? Yes * Has this patient been hospitalized within the prior 30 days at any hospital? Yes External Providers External Provider: Sweta Next Contact Date: Service Request Date: Service Type: Resolution: Reviewer: Comments: Coverage Notice Reviewer: [id number] Tuttle Notice Issued Date-Time: 08/05/2019 12:30 Notice Type: IM Discharge Notice Notice Delivered To: Patient Relationship to Patient: Self Program Officer Name: Delivery Method: HAND - Hand Delivered Anupama Days: Prior Verbal Notification: Recipient Understood Notice: Yes Recipient Signature: Yes Med Rec Note Co-signed by Attending: Coverage Notice Comment: IMM explained, signed, given, copy placed in MR Reviewer: [id number] Edward Tuttle Notice Issued Date-Time: 08/05/2019 12:30 Notice Type: Patient Choice Letter Notice Delivered To: Patient Relationship to Patient: Self Program Officer Name: Delivery Method: HAND - Hand Delivered Anupama Days: Prior Verbal Notification: Recipient Understood Notice: Yes Recipient Signature: Yes Med Rec Note Co-signed by Attending: Coverage Notice Comment: shaila for [facility] or [facility] or [facility] Last DP export: 08/05/19 11:43 a Patient Name: CALLIE PURVIS Page [phone] at 1332 All edits/amendments must be made on the electronic document DICTATION DATE: 08/05/191331 PURCHASING/RECEIVING: FREDDY 08/05/191331 RPT#: [id number] DC DATE: STATUS: ADM IN [facility] [address] [place] [address] END OF REPORT
[2019-08-05] MEDS ORDERED: ELIQUIS5 MG PO (14:24)
--- NOTE | 2019-08-05 17:21 | NUR ---
ALERT AND ORIENTED X4. SITTING UP IN BED. DISCHARGE INSTRUCTIONS GIVEN VERBALLY AND WRITTEN. DISCHARGE PAPERS SIGNED ON CHART. TONIGHT DOSE OF ELIQUIS ADMINISTERED PER 'S REQUEST. PATIENT UNABLE TO FILL PRESCRIPTION UNTIL 08/06/2019. DC RT EJ TIP INTACT. DC LT AC TIP INTACT. PORTABLE OXYGEN DELIVERED. ESCORT TO RIDE VIA WHEELCHAIR. REMAINS FREE FROM INJURY.
--- NOTE | 2019-08-06 08:01 | MORECARE ---
CASE MANAGEMENT DISCHARGE SUMMARY PATIENT: CALLIE PURVIS UNIT: [id number] ADM DATE: 08/01/19 AGE: 69 : 49 SEX: M ROOM/BED: D.2113 AUTHOR: ESTEFANI SHAFFER PHYSICIAN: REFERRING PHYSICIAN: JANET JARRETT DO DATE OF SERVICE: 08/06/19 Discharge Plan Patient Name: CALLIE PURVIS Facility: [facility]:[place] : 1950 Planned Disposition: Home Anticipated Discharge Date: Discharge Date: 08/05/2019 Expected LOS: Initial Reviewer: [id number] Initial Review Date: 08/02/2019 Generated: 08/06/19 9:00 am Comments DCP- Discharge Planning Updated by [email or web address]: Gina Tuttle on 08/05/19 12:[address] [facility] has dropped off the portable oxygen and patient has the card to call [facility] when discharged for home. No other needs identified. CM will continue to follow and assist with discharge planning/needs. DCP- Discharge Planning Updated by [email or web address]: Gina Tuttle on 08/05/19 11:[address] I received an order to arrange oxygen. I have called RT for a walk test. He failed walk test with PT. I spoke with patient and SHAILA for [facility] signed. I called Enzo with [facility], clinical and order faxed. Enzo states she will have transport bring patient a portable tank and the substitute bus driver will give his card for patient to call when discharged to meet at his house for home concentrator. CM will continue to follow and assist with discharge planning/needs. DCP- Discharge Planning Updated by [id number]: Traci Deutsch on 08/03/19 3:[address] LATE ENTRY 08/02/19 Patient Name: CALLIE PURVIS Admission Status: ER Accout number: [id number] Admission Date: 08-01-2019 : 1950 Admission Diagnosis:OTHER PULMONARY EMBOLISM WITHOUT ACUTE COR PULMONALE Attending: JANET JARRETT Current LOS: 2 Anticipated DC Date: Planned Disposition: Home Primary Insurance: MEDICARE A & B Discharge Planning Comments: CM met with patient at bedside after explaining CM role and obtaining verbal consent. Patient lives at home with his where he is independent with his care and plans to return there upon discharge. Patient feels this would be a safe discharge. CM discussed availability / needs of home health and medical equipment. Patient denies any discharge needs at this time. Patient states he will have his family drive him home upon discharge. CM will continue to follow and assist as needed with discharge planning / needs. Educational Psychology Teacher: Traci Deutsch DCPIA - Discharge Planning Initial Assessment Updated by [email or web address]: Traci Deutsch on 08/03/19 4:01 pm * Is the patient Alert and Oriented? Yes * How many steps to enter\exit or inside your home? * PCP Dr. Georges [place] * [facility] [place] * Preadmission Environment Home with Family * ADLs Independent * Other Equipment hospital bed, walker, shower chair * List name and contact numbers for known caregivers / representatives who currently or will assist patient after discharge: Salima Purvis - [facility] - [phone] * Verbal permission to speak to the caregivers and representatives has been obtained from the patient. Yes * Community resources currently utilized None * Additional services required to return to the preadmission environment? No * Can the patient safely return to the preadmission environment? Yes * Has this patient been hospitalized within the prior 30 days at any hospital? Yes Coverage Notice Reviewer: [id number] Tuttle Notice Issued Date-Time: 08/05/2019 12:30 Notice Type: IM Discharge Notice Notice Delivered To: Patient Relationship to Patient: Self Stamp Analyst Name: Delivery Method: HAND - Hand Delivered Anupama Days: Prior Verbal Notification: Recipient Understood Notice: Yes Recipient Signature: Yes Med Rec Note Co-signed by Attending: Coverage Notice Comment: IMM explained, signed, given, copy placed in MR Reviewer: [id number] Edward Tuttle Notice Issued Date-Time: 08/05/2019 12:30 Notice Type: Patient Choice Letter Notice Delivered To: Patient Relationship to Patient: Self Stamp Analyst Name: Delivery Method: HAND - Hand Delivered Anupama Days: Prior Verbal Notification: Recipient Understood Notice: Yes Recipient Signature: Yes Med Rec Note Co-signed by Attending: Coverage Notice Comment: shaila for [facility] or [facility] or [facility] Last DP export: 08/05/19 12:32 p Patient Name: CALLIE PURVIS Page [phone] at 0801 All edits/amendments must be made on the electronic document DICTATION DATE: 08/06/19799 TUBER MACHINE OPERATOR HELPER: FREDDY 08/06/19799 RPT#: [id number] DC DATE:08/05/19 STATUS: DIS IN [facility] [address] [place] [address] END OF REPORT
== END 2019-08-05 17:26 | disposition home or self-care (01) | DRG 175 ==
LOC: D.ER 02:13 → D.CVICU 03:58 → D.M2 03:58
PROVIDERS: Family Medicine; Internal Medicine Hematology & Oncology; Internal Medicine Pulmonary Disease; ADMIT Family Medicine; ATTEND Family Medicine
DX: I26.99 Other pulmonary embolism without acute cor pulmonale (principal); J96.01 Acute respiratory failure with hypoxia; I21.3 ST elevation (STEMI) myocardial infarction of unspecified site; I24.8 Other forms of acute ischemic heart disease; E11.9 Type 2 diabetes mellitus without complications; I10 Essential (primary) hypertension; I25.10 Atherosclerotic heart disease of native coronary artery without angina pectoris; E78.5 Hyperlipidemia, unspecified; K21.9 Gastro-esophageal reflux disease without esophagitis; N21.0 Calculus in bladder; Z87.891 Personal history of nicotine dependence

== ENCOUNTER → 2019-09-19 08:14 | Outpatient (CLI) | payer MEDICARE, BC ==
[2019-08-03 12:46] VITALS: BMI 30.9
[~2019-09-19 08:14] MED LIST changes: +ELIQUIS5 MG PO
== END | disposition home or self-care (01) ==
LOC: D.LAB 08:14
PROVIDERS: ATTEND Internal Medicine Pulmonary Disease
DX: Z11.59 Encounter for screening for other viral diseases (principal)

== ENCOUNTER → 2019-09-21 13:19 | Outpatient (CLI) | payer MEDICARE, BC ==
[2019-08-03 12:46] VITALS: BMI 30.9
== END | disposition home or self-care (01) ==
LOC: D.RT 13:19
PROVIDERS: ATTEND Internal Medicine Pulmonary Disease
DX: Z11.59 Encounter for screening for other viral diseases (principal)

== ENCOUNTER → 2020-07-10 09:34 | Outpatient (CLI) | payer MEDICARE, BC ==
[2019-08-03 12:46] VITALS: BMI 30.9
== END | disposition home or self-care (01) ==
LOC: D.CT 09:34
PROVIDERS: ATTEND Internal Medicine Pulmonary Disease
DX: J98.4 Other disorders of lung (principal)